=== PATIENT | male | born 2000 | race Caucasian/White ===

== ENCOUNTER 2023-09-10 14:37 | Emergency (ER) | payer OTHER, SELFPAY ==
[2023-09-10 14:37] VITALS: BP 137/80; PULSE 112; RESP 18; TEMP 36.4; O2SAT 97; BMI 26.2
--- NOTE | 2023-09-10 15:35 | EX.ED.DYSGE1 ---
HPI History of Present Illness Chief Complaint: Abn Labs Narrative Narrative: 22-year-old male presenting with history of scleral icterus. He states he had scleral icterus on Saturday and Saturday but is now gone. He states that on the he went to [place] to stay in a cabin with some friends for what he calls a Segway. He states they were not doing any drugs or alcohol. He states they went hiking and just cooked out in the camper. He states he did not eat anything exotic. He notes that on the when he was coming home he started to feel unwell and mildly nauseous and had a mild headache. He states that on the he developed a fever which she had for several days afterwards. On about the or he went to his primary care Dr. Silvano Walls and was concerned that he had found some ticks on his head and his foot which he is unsure how long he had been there. He did not have any rashes and his primary care did not believe it was secondary to tick bite but gave him doxycycline for 10 days which she only took 3 days of. He states it was because he could not hold a thing down he was nauseous. He was subsequently given Zofran which she states did not help. He states he did take Tylenol during the time when he was sick but he did not take anything in excess. He has not had any abdominal pain. No constipation or diarrhea. Patient states that some of the other with him had ticks on them as well but they were not ill. Patient states otherwise healthy prior to this. He states his primary care physician obtained lab work that showed his liver enzymes were elevated and he was told to come to the emergency room because it would be faster. PFSH PFS Medical History no medical history Home Medications ?Medication ?Instructions ?Recorded ?Last Taken ?Type NK 09/10/23 Unknown History Allergy/AdvReac Type Severity Reaction Status Date / Time No Known Allergies Allergy Verified 09/10/23 14:39 Family History no significant family his Surgical History no surgical history Social History household members: spouse Smoking Status: Never smoker ROS ROS ED Constitutional Constitutional ED: Reports chills and fever(s); Denies sweats Eyes Eyes: Reports other Details: Scleral icterus ; Denies blurry vision or change in vision ENT ENT ED: Denies ear pain or sore throat Cardiovascular Cardiovascular: Denies chest pain, palpitations or racing heartbeat Respiratory/Chest Respiratory/Chest: Denies cough, dyspnea or sputum Gastrointestinal Gastrointestinal: Reports nausea and vomiting; Denies abdominal pain, constipation or diarrhea Genitourinary Genitourinary ED: Denies dysuria, hematuria or urinary frequency Musculoskeletal Musculoskeletal: Denies arthralgias, myalgias or neck pain Integumentary Reports other; Denies abscess, Abrasions or rash Neurologic Neurologic: Reports headache(s); Denies paresthesias or weakness Psychiatric Psychiatric: Denies anxiety, depression, suicidal ideation or suicidal thoughts Endocrine Endocrinology: Denies polydipsia or polyuria EXAM Physical Exam Const Vital Signs: 09/10/23 14:37 09/10/23 15:12 09/10/23 17:06 Temperature 97.6 F L Temperature Source Temporal Pulse Rate 112 H 80 Respiratory Rate 18 14 Respiratory Effort Normal Non-Labored Respiratory Pattern Normal Blood Pressure 137/80 H 129/97 H Blood Pressure Mean 99 107 Pulse Ox 97 100 Oxygen Delivery Method Room Air Positive well nourished General Appearance ED: NAD; Negative for pallor HEENT Reports moist mucous membranes Eyes PERRL and EOMs intact bilaterally Chest Wall inspection of chest normal Resp normal respiratory effort and clear to auscultation bilaterally Auscultation: Negative for rales, rhonchi or wheezes Cardio regular rate and regular rhythm GI normal to inspection, nondistended, normoactive bowel sounds Neuro oriented x3 and CN's II-XII intact bilaterally Sensorium / Orientation: alert Motor Exam: strength 5/5 throughout Skin no rashes or lesions noted General Skin Exam: Negative for jaundice or pallor MDM MDM MDM Narrative Medical decision making narrative: Patient presenting with elevated liver enzymes. I did not have his labs from earlier so we did repeat some. He is not in any pain although he has had a little bit of nausea recently. No jaundice. No scleral icterus. No rashes. CBC was obtained to assess white blood cell count, hemoglobin, platelets. BMP to assess renal function, electrolytes, glucose. LFTs to assess liver enzymes. Lipase to assess for pancreatitis. Drug screen was obtained. CBC shows mild leukocytosis 12.0. Hemoglobin 13.2. Platelets are normal at 277. Renal function and electrolytes within normal limits. Total bilirubin 3.90, direct bilirubin 2.96, AST 250, ALT 498, alk phosphatase 440. Lipase mildly elevated 86. Drug screen negative. Discussed with Dr. Mcfadden who recommended doing imaging of both ultrasound and CT to make sure there is no obstructive process. He did put in additional labs including CMV, EBV, hepatitis panel. He will follow-up with the patient on an outpatient basis. Return precautions were discussed with him. Prior to the patient discharged I did receive a report that states he was Lyme disease negative. I did have these labs scanned into the system. Patient discharged stable condition. Impression: 1. Hepatitis Lab Data Attestation: I reviewed the patient's lab results. Labs: Laboratory Results - last 24 hr 09/10/23 09/10/23 15:25 15:49 WBC 12.0 H RBC 4.92 Hgb 13.2 Hct 40.9 MCV 83.1 MCH 26.8 L MCHC 32.3 RDW Std Deviation 42.5 RDW Coeff of Mirian 14.1 Plt Count 277 MPV 10.1 Immature Gran % (Auto) 0.300 Neut % (Auto) 16.2 L Lymph % (Auto) 76.3 H [place] % (Auto) 5.3 Eos % (Auto) 0.3 Baso % (Auto) 1.6 H Absolute Neuts (auto) 2.0 Absolute Lymphs (auto) 9.13 H Nucleated RBC % 0 Differential Comment SCANNED Sodium 134 L Potassium 3.8 Chloride 102 Carbon Dioxide 25.0 Anion Gap 7 BUN 14 Creatinine 1.14 Estim Creat Clear Calc 112.50 Est GFR (MDRD) Af Amer 104 Est GFR (MDRD) Non-Af 86 BUN/Creatinine Ratio 12.3 Glucose 82 Calcium 8.5 Total Bilirubin 3.90 H Direct Bilirubin 2.96 H AST 250 H ALT 498 H Alkaline Phosphatase 440 H Total Protein 7.6 Albumin 3.5 Globulin 4.1 Lipase 86 H Urine Opiates Screen NEGATIVE Urine Methadone Screen NEGATIVE Ur Barbiturates Screen NEGATIVE Ur Phencyclidine Scrn NEGATIVE Ur Amphetamines Screen NEGATIVE MDMA (Ecstasy) Screen NEGATIVE U Benzodiazepines Scrn NEGATIVE Urine Cocaine Screen NEGATIVE U Cannabinoids Screen NEGATIVE Ur Drug Screen Comment Radiography Diagnostic Testing: Clinical Impression(s) from Imaging Studies Abdomen/Pelvis CT 09/10/23 16:16 IMPRESSION: Hepatosplenomegaly. No other definite acute or significant abnormality seen. Electronically Signed: Mukul Herrera MD at 17:03 EDT , Gallbladder Ultrasound 09/10/23 16:16 IMPRESSION: Limited by bowel gas. Thickened gallbladder wall, otherwise unremarkable. Electronically Signed: Mukul Herrera MD at 17:41 EDT , Discharge Plan Triage Chief Complaint: Abn Labs ED Provider: Forrest Holliday Dx/Rx/DC Orders Instructions: ED Hepatitis Cause Unknown ... Prescriptions: No Action NK Primary Care Provider: Silvano Walls Referrals: Silvano Walls DO [Primary Care Provider] - Morgan Mcfadden DO [Med Staff - Active Staff] - As soon as possible Activity Restrictions/Additional Instructions: Make sure you follow-up with gastroenterology. They added some more lab work that follow-up with. Return for any new or worsening symptoms. Print Language: Amharic Disposition Disposition: Home, Self Care
[2023-09-10 15:39] LABS: Absolute Lymphocyte Count 9.13 X10^3/uL (0.83-4.51); Basophil# 0.19 X10^3/uL; Basophil% 1.6 % (0-1); Eosinophil# 0.03 X10^3/uL; Eosinophils% 0.3 % (0-5); Hematocrit 40.9 % (40-54); Hemoglobin 13.2 g/dL (13.0-16.5); Lymphocyte # 9.13 X10^3/ul (0.83-4.51); Lymphocyte % 76.3 % (19-41); Mean Corp Hgb Conc 32.3 g/dL (32-36); Mean Corpuscular Hgb 26.8 pg (27.0-32.0); Mean Corpuscular Volume 83.1 fL (80-94); Mean Platelet Vol. 10.1 fl (6.2-12.0); Monocyte# 0.63 X10^3/uL; Monocyte% 5.3 % (0-10); NRBC Flagged by Analyzer 0 % (0-5); Neutrophil # 1.96 X10^3/uL (2.7-7.7); Neutrophil % 16.2 % (47-70); POSITIVE DIFFERENTIAL YES; POSITIVE MORPHOLOGY YES; Platelet Count 277 K/mm3 (150-450); RBC Distribution Width CV 14.1 % (11.6-14.6); RBC Distribution Width SD 42.5 fl (35.1-43.9); Red Blood Count 4.92 M/mm3 (4.6-6.2)
[2023-09-10 15:53] LABS: Differential Indicated SCAN CRITERIA MET
[2023-09-10 15:57] LABS: AST(SGOT) 250 U/L (15-37); Alanine Aminotransfer ALT/SGPT 498 U/L (16-61); Albumin, Serum 3.5 g/dL (3.2-5.0); Alkaline Phosphatase 440 U/L (45-117); Anion Gap 7 (5-15); BUN 14 mg/dL (7-18); BUN/Creat Ratio 12.3 RATIO (10-20); Bilirubin, Direct 2.96 mg/dL (0.00-0.30); Calcium,Total 8.5 mg/dL (8.5-10.1); Chloride 102 mmol/L (98-107); Creatinine, Serum 1.14 mg/dL (0.70-1.30); EST Glomerular Filtration Rate 86 mL/min (>60); Est Glom Filt Rate - Afr Amer 104 mL/min (>60); Globulin 4.1 g/dL (2.2-4.2); Glucose 82 mg/dL (74-106); Lipase 86 U/L (13-75); Potassium 3.8 mmol/L (3.5-5.1); Protein, Total 7.6 g/dL (6.4-8.2); Sodium Level 134 mmol/L (136-145)
--- NOTE | 2023-09-10 16:16 | CT_ITS ---
STUDY: CT ABDOMEN AND PELVIS WITH CONTRAST REASON FOR EXAM: Male, 22 years old. abdominal pain RADIATION DOSAGE (If Supplied By Facility): CTDIvol = ( 10.97 ) mGy, DLP = ( 820.96 ) mGycm TECHNIQUE: Transaxial images were obtained from the dome of the diaphragm to the symphysis pubis without oral contrast. IV 100mL Isovue-300 was administered. Sagittal and coronal images were reconstructed. Individualized dose optimization techniques were used for this CT. COMPARISON: None. FINDINGS: The visualized lung bases are unremarkable. The visualized portions of the heart are within normal limits. There is hepatomegaly with diffuse hepatic enlargement. Normal gallbladder and extrahepatic biliary system. There is moderate splenomegaly. Normal pancreas. Normal bilateral adrenal glands. Normal right kidney. Normal left kidney. Evaluation of the GI tract is limited by absence of oral contrast. Cannot exclude stomach wall thickening. No dilated loops of bowel or evidence for obstruction. Cannot exclude segmental thickening of the choudhury of the small or large bowel. Cannot exclude enteritis or colitis. Moderate diffuse fecal retention. Appendix within normal limits. Normal abdominal aorta. Normal inferior vena cava. Normal retroperitoneum. Normal urinary bladder. Normal abdominal wall. Normal osseous structures. CT/Abdomen/Pelvis W IV Cont ONLY IMPRESSION: Hepatosplenomegaly. No other definite acute or significant abnormality seen. Electronically Signed: Mukul Herrera MD at 17:03 EDT ,
--- NOTE | 2023-09-10 16:16 | US_ITS ---
STUDY: ABDOMINAL ULTRASOUND - RIGHT UPPER QUADRANT REASON FOR VISIT: Male, 22 years old hepatitis TECHNIQUE: Ultrasound evaluation of the right upper quadrant was performed with real-time and static lopez-scale imaging. TECHNICAL QUALITY: Limited. Examination limited by bowel gas. COMPARISON: CT scan of the same day. FINDINGS: Liver: The liver measures 17 cm. There is normal echogenicity of the liver. The bile ducts are within normal limits. There is hepatic color flow. The direction of portal flow is hepatopetal. There is no demonstrated mass lesion. Gallbladder: Normal distended gallbladder. The gallbladder wall measures 3.3 mm. There is a negative sonographic Bentley''s sign. There is no pericholecystic fluid. There are no gallstones. Common Bile Duct (C.B.D.): The common bile duct measures 3 mm. Pancreas: Suboptimally visualized-better seen on the CT scan. Right Kidney: Normal size of the right kidney. The right kidney measures 12.0 x 5.1 x 4.3 cm. Normal renal cortex. The right cortex measures 1.0 cm. There is no demonstrated renal mass or cyst. There is no right hydronephrosis. US/Gallbladder IMPRESSION: Limited by bowel gas. Thickened gallbladder wall, otherwise unremarkable. Electronically Signed: Mukul Herrera MD at 17:41 EDT ,
[2023-09-10 16:29] LABS: Amphetamine Urine VISTA NEGATIVE (<1000 ng/mL); Barbiturate Urine VISTA NEGATIVE (< 200 ng/mL); Benzodiazepine Urine VISTA NEGATIVE (< 200 ng/mL); Cocaine Urine VISTA NEGATIVE (< 300 ng/mL); Ecstacy Urine VISTA NEGATIVE (< 500 ng/mL); Methadone Urine VISTA NEGATIVE (< 300 ng/mL); PCP Urine VISTA NEGATIVE (< 25 ng/mL); THC Urine VISTA NEGATIVE (< 50 ng/mL); Vista UDS pH Range 6
[2023-09-10 16:41] LABS: Differential Comment SCANNED
[2023-09-10 17:06] VITALS: BP 129/97; PULSE 80; RESP 14; O2SAT 100
[2023-09-10 19:00] VITALS: BP 120/91; PULSE 87; RESP 18; TEMP 36.6; O2SAT 99
[2023-09-12 13:08] LABS: Anti-Centromere B Ab <0.2 AI (0.0-0.9); Anti-Chromatin <0.2 AI (0.0-0.9); Anti-Jo <0.2 AI (0.0-0.9); Anti-Scleroderma-70 AB <0.2 AI (0.0-0.9); Anti-dsDNA Ab <1 IU/mL (0-9); RNP Ab 0.2 AI (0.0-0.9); SJOGREN'S Anti-SS-A test < 0.2 AI (0.0-0.9); SJOGREN'S Anti-SS-B test < 0.2 AI (0.0-0.9); Smith Ab <0.2 AI (0.0-0.9)
[2023-09-12 14:10] LABS: Anti-Mitochondrial AB <20.0 Units (0.0-20.0)
[2023-09-13 16:10] LABS: Albumin 3.3 g/dL (2.9-4.4); Alpha-1-Globulins 0.3 g/dL (0.0-0.4); Alpha-2-Globulins 0.5 g/dL (0.4-1.0); Anti-Smooth Muscle ABS 11 Units (0-19); CMV Acute Antibody IgM < 30.0 AU/mL (0.0-29.9); Ceruloplasmin 34.1 mg/dL (16.0-31.0); Copper, Serum or Plasma 142 ug/dL (63-121); Cytoplasmic Ab (C-ANCA) <1:20 titer (Neg:<1:20); EBV Nuclear Antigen IgG < 18.0 U/mL (0.0-17.9); Gamma Globulin 1.4 g/dL (0.4-1.8); HEPATITIS B SURFACE AG Negative (Negative); Hep C Antibodies Non Reactive (Non Reactive); Hepatitis A IgM Antibody Negative (Negative); Hepatitis B Core AB IgM Negative (Negative); Immunoglobulin A 187 mg/dL (90-386); Immunoglobulin G 1299 mg/dL (603-1613); Immunoglobulin M 209 mg/dL (20-172); PROEL- TOTAL PROTEIN 6.6 g/dL (6.0-8.5); Perinuclear Ab (P-ANCA) <1:20 titer (Neg:<1:20)
== END 2023-09-10 19:23 | disposition home or self-care (01) ==
PROVIDERS: Internal Medicine Gastroenterology; Emergency Provider Student in an Organized Health Care Education/Training Program; PCP Family Medicine; Visit Provider Student in an Organized Health Care Education/Training Program
DX: K75.9 Inflammatory liver disease, unspecified (principal)
CPT/HCPCS: 74177; 76705; 80048; 80074; 80076; 80307; 82390; 82525; 82784; 83516; 83690; 84165; 85025; 86225; 86235; 86256; 86334; 86644; 86645; 86664; 86665; 99283; Q9967; A4216